=== PATIENT | male | born 1985 | race African-American/Black ===

== ENCOUNTER 2021-01-30 21:06 | Inpatient (IN) | payer OTHER ==
[~2021-01-30] VITALS: Ht 190.5 cm; Wt 104.2 kg
[2021-01-30] MEDS ORDERED: diphenhdrAMINE HCL 50 MG/1 ML VL IV ONE (22:15)
[2021-01-30] MEDS ORDERED: methylPREDNISolone SOD SUCC 125 MG/2 ML VL IV ONE (22:15)
[2021-01-30] MEDS ORDERED: fentaNYL CITRATE 100 MCG/2 ML VL IV ONE (22:15)
[2021-01-30] MEDS ORDERED: ONDANSETRON HCL 4 MG/2 ML VIAL IV ONE (22:15)
[2021-01-30] MEDS ORDERED: IOHEXOL 350 MG/ML 100ML IJ ONE (22:17)
[2021-01-30 22:37] LABS: Basophils # (auto) 0 10 ^3/uL (0-0.2); Basophils % (auto) 0.3 % (0.0-2.0); Eosinophils # (auto) 0 10 ^3/uL (0-0.8); Hematocrit 34.4 % (41.0-53.0); Hemoglobin 11.4 g/dL (13.5-17.5); Lymphocytes # (auto) 0.3 10 ^3/uL (0.4-5.4); Lymphocytes % (auto) 3.6 % (10.0-50.0); Mean Corpuscular Hemoglobin 28.5 pg (28.0-32.0); Mean Corpuscular Hgb Conc. 33.1 g/dL (32.0-36.0); Mean Corpuscular Volume 86.3 fL (80.0-100.0); Monocytes # (auto) 0.3 10 ^3/uL (0-1.3); Monocytes % (auto) 3.5 % (0.0-12.0); Neutrophils # (auto) 8.6 10 ^3/uL (1.6-8.6); Neutrophils % (auto) 92.6 % (37.0-80.0); Red Blood Cells 3.99 10^6/uL (4.5-5.90); White Blood Cell 9.2 10^3/uL (4.4-10.8)
[2021-01-30] MEDS ORDERED: FAMOTIDINE (10MG/ML) 2ML VL IV ONE (22:45)
[2021-01-30 22:53] LABS: INR 0.99 (0.9-1.15); Partial Thromboplastin Time 23.3 sec (23.6-33.0)
[2021-01-30 23:04] LABS: Alanine Aminotransferase 20 U/L (16-61); Albumin 3.3 g/dL (3.4-5.0); Anion Gap 7 (5-15); BUN/Creatinine Ratio 25.9; Blood Urea Nitrogen 15 mg/dL (7-18); Calcium 8.5 mg/dL (8.5-10.1); Carbon Dioxide 26 mmol/L (21-32); Chloride 106 mmol/L (98-107); GFR African American 205 mL/min; GFR Non-African American 169 mL/min; Glucose 79 mg/dL (74-106); Magnesium 2.2 mg/dL (1.6-2.6); Potassium 4.9 mmol/L (3.5-5.1); Sodium 139 mmol/L (136-145)
[2021-01-30 23:09] LABS: Alkaline Phosphatase 92 U/L (45-117); Aspartate Aminotransferase 9 U/L (15-37); Bilirubin, Total 0.3 mg/dL (0.2-1.0); Total Protein 6.7 g/dL (6.4-8.2)
[2021-01-31] MEDS ORDERED: diphenhdrAMINE HCL 50 MG/1 ML VL IV ONE (01:00)
[2021-01-31] MEDS ORDERED: HYDROmorphone HCL 2 MG/ML VL IV ONE (01:00)
[2021-01-31] MEDS ORDERED: PANTOPRAZOLE 40 MG/10 ML VIAL INJ IV ONE (02:00)
[2021-01-31] MEDS ORDERED: AZITHROMYCIN 500MG/ 250ML 250 ML IV ONE (02:00)
[2021-01-31] MEDS ORDERED: cefTRIAXone 1GM/50ML D5W 50 ML IV ONE (02:00)
[2021-01-31] MEDS ORDERED: HYDROcodone-ACET 5/325MG TAB PO PRN (02:45)
[2021-01-31] MEDS ORDERED: NITROGLYCERIN 0.4 MG SL TAB SL PRN (02:45)
[2021-01-31] MEDS ORDERED: MORPHINE SULFATE INJECTION 2 MG/ML SYRG IV PRN (02:45)
[2021-01-31] MEDS ORDERED: DOCUSATE SOD 100 MG CAP PO PRN (02:45)
[2021-01-31] MEDS ORDERED: ACETAMINOPHEN 325 MG TAB PO PRN (02:45)
[2021-01-31] MEDS: diphenhdrAMINE HCL 50 MG/1 ML VL IV PRN ×2 (03:39→20:18)
[2021-01-31] MEDS: SODIUM CHLOR 0.9% PF (SALINE LOCK) 10ML VIAL/SYR IV SCH ×3 (06:06→22:10)
[2021-01-31] MEDS: ONDANSETRON HCL 4 MG/2 ML VIAL IV PRN ×3 (06:24→15:44)
[2021-01-31] MEDS: HYDROmorphone HCL 2 MG/ML VL IV PRN ×4 (06:24→20:25)
[2021-01-31] MEDS ORDERED: ENOXAPARIN SOD 40 MG/0.4 ML SYRINGE SC SCH (10:00)
[2021-01-31] MEDS ORDERED: ZINC SULFATE 220mg CAP or TAB PO SCH (10:00)
[2021-01-31] MEDS ORDERED: MULTIPLE VITAMIN TAB PO SCH (10:00)
[2021-01-31] MEDS: methylPREDNISolone SOD SUCC 40 MG/ML VL IV SCH ×2 (10:59→22:14)
[2021-01-31] MEDS: FAMOTIDINE (10MG/ML) 2ML VL IV SCH ×2 (10:59→22:14)
[2021-01-31] MEDS: cefTRIAXone 1GM/50ML D5W 50 ML IV SCH (10:59)
[2021-01-31] MEDS: ASCORBIC ACID 500 MG TAB PO SCH ×2 (11:00→22:10)
[2021-01-31] MEDS: AZITHROMYCIN 500MG/ 250ML 250 ML IV SCH (11:28)
[2021-01-31] MEDS: SUCRALFATE 1 GM/10 ML ORAL SUSP PO SCH ×2 (18:30→22:10)
[2021-01-31 23:00] VITALS: BP 112/67
[2021-01-31 23:48] VITALS: BP 112/67
[2021-02-01] MEDS: HYDROmorphone HCL 2 MG/ML VL IV PRN ×6 (00:38→23:12)
[2021-02-01] MEDS ORDERED: FOLI1TAB6 PO (04:26)
[2021-02-01] MEDS ORDERED: CYA100I PO (04:26)
[2021-02-01] MEDS ORDERED: PANT40TA2 PO (04:26)
[2021-02-01] MEDS ORDERED: MONT10TA23 PO (04:26)
[2021-02-01] MEDS ORDERED: ASPI-543 PO (04:26)
[2021-02-01] MEDS ORDERED: ISO60SRT PO (04:26)
[2021-02-01] MEDS ORDERED: DOCU-94 PO (04:26)
[2021-02-01] MEDS ORDERED: ZOLP10TA PO (04:26)
[2021-02-01] MEDS ORDERED: DULO60CA PO (04:26)
[2021-02-01] MEDS ORDERED: TRAM-711 PO (04:26)
[2021-02-01] MEDS ORDERED: FLUT100M IN (04:26)
[2021-02-01] MEDS ORDERED: GABA300C10 PO (04:26)
[2021-02-01] MEDS ORDERED: TIOTCAP IN (04:26)
[2021-02-01] MEDS ORDERED: ONDA-144 PO (04:26)
[2021-02-01] MEDS ORDERED: ATOR10TA PO (04:26)
[2021-02-01] MEDS ORDERED: FERR-20 PO (04:26)
[2021-02-01] MEDS ORDERED: SOTA80TA20 PO (04:26)
[2021-02-01] MEDS ORDERED: DIP25C PO (04:26)
[2021-02-01] MEDS ORDERED: PERCOT PO (04:26)
[2021-02-01] MEDS ORDERED: DIGO0.12 PO (04:26)
[2021-02-01 05:00] VITALS: BP 104/58
[2021-02-01] MEDS: diphenhdrAMINE HCL 50 MG/1 ML VL IV PRN ×3 (05:04→23:12)
[2021-02-01] MEDS: SUCRALFATE 1 GM/10 ML ORAL SUSP PO SCH ×4 (06:19→21:52)
[2021-02-01] MEDS: SODIUM CHLOR 0.9% PF (SALINE LOCK) 10ML VIAL/SYR IV SCH ×3 (06:19→21:52)
[2021-02-01 07:24] LABS: Basophils # (auto) 0.1 10 ^3/uL (0-0.2); Basophils % (auto) 1.1 % (0.0-2.0); Eosinophils # (auto) 0 10 ^3/uL (0-0.8); Hematocrit 29.9 % (41.0-53.0); Hemoglobin 9.9 g/dL (13.5-17.5); Lymphocytes # (auto) 0.3 10 ^3/uL (0.4-5.4); Lymphocytes % (auto) 3.2 % (10.0-50.0); Mean Corpuscular Hemoglobin 28.5 pg (28.0-32.0); Mean Corpuscular Volume 86.5 fL (80.0-100.0); Monocytes # (auto) 0.5 10 ^3/uL (0-1.3); Monocytes % (auto) 5.3 % (0.0-12.0); Neutrophils # (auto) 8.6 10 ^3/uL (1.6-8.6); Neutrophils % (auto) 90.4 % (37.0-80.0); Nucleated Red Blood Cells % 0.2 %; Red Blood Cells 3.46 10^6/uL (4.5-5.90); Red Cell Distribution Width 17.5 % (11.8-14.3); White Blood Cell 9.5 10^3/uL (4.4-10.8)
[2021-02-01 07:34] LABS: Albumin 2.7 g/dL (3.4-5.0); BUN/Creatinine Ratio 38.3; Calcium 6.8 mg/dL (8.5-10.1)
[2021-02-01 07:36] LABS: Bilirubin, Total 0.3 mg/dL (0.2-1.0); Total Protein 5.4 g/dL (6.4-8.2)
[2021-02-01 09:00] VITALS: BP 109/69
[2021-02-01] MEDS: cefTRIAXone 1GM/50ML D5W 50 ML IV SCH (09:24)
[2021-02-01] MEDS: FAMOTIDINE (10MG/ML) 2ML VL IV SCH ×2 (09:25→21:51)
[2021-02-01] MEDS: methylPREDNISolone SOD SUCC 40 MG/ML VL IV SCH (09:25)
[2021-02-01] MEDS: AZITHROMYCIN 500MG/ 250ML 250 ML IV SCH (10:19)
[2021-02-01 13:00] VITALS: BP 107/70
[2021-02-01 16:47] VITALS: BP 110/73
[2021-02-01 22:00] VITALS: BP 112/56
[2021-02-02] MEDS: diphenhdrAMINE HCL 50 MG/1 ML VL IV PRN ×5 (03:27→23:24)
[2021-02-02] MEDS: HYDROmorphone HCL 2 MG/ML VL IV PRN ×5 (03:28→23:25)
[2021-02-02 05:00] VITALS: BP 97/54
[2021-02-02] MEDS: SODIUM CHLOR 0.9% PF (SALINE LOCK) 10ML VIAL/SYR IV SCH ×3 (05:24→22:24)
[2021-02-02] MEDS: SUCRALFATE 1 GM/10 ML ORAL SUSP PO SCH ×4 (06:11→22:24)
[2021-02-02 06:15] LABS: Basophils # (auto) 0 10 ^3/uL (0-0.2); Basophils % (auto) 0.5 % (0.0-2.0); Eosinophils # (auto) 0 10 ^3/uL (0-0.8); Eosinophils % (auto) 0.1 % (0.0-7.0); Hematocrit 32.7 % (41.0-53.0); Hemoglobin 10.8 g/dL (13.5-17.5); Lymphocytes # (auto) 0.2 10 ^3/uL (0.4-5.4); Lymphocytes % (auto) 2.9 % (10.0-50.0); Mean Corpuscular Hemoglobin 28.3 pg (28.0-32.0); Mean Corpuscular Hgb Conc. 33.1 g/dL (32.0-36.0); Mean Corpuscular Volume 85.7 fL (80.0-100.0); Monocytes # (auto) 0.6 10 ^3/uL (0-1.3); Monocytes % (auto) 8.6 % (0.0-12.0); Neutrophils # (auto) 5.9 10 ^3/uL (1.6-8.6); Neutrophils % (auto) 87.9 % (37.0-80.0); Nucleated Red Blood Cells % 0.1 %; Red Blood Cells 3.81 10^6/uL (4.5-5.90); Red Cell Distribution Width 16.9 % (11.8-14.3); White Blood Cell 6.7 10^3/uL (4.4-10.8)
[2021-02-02 09:00] VITALS: BP 128/60
[2021-02-02] MEDS: cefTRIAXone 1GM/50ML D5W 50 ML IV SCH (09:00)
[2021-02-02] MEDS: AZITHROMYCIN 500MG/ 250ML 250 ML IV SCH (10:00)
[2021-02-02] MEDS: FAMOTIDINE (10MG/ML) 2ML VL IV SCH ×2 (10:00→22:24)
[2021-02-02 13:00] VITALS: BP 106/61
[2021-02-02 16:37] VITALS: BP 100/47
[2021-02-02 22:00] VITALS: BP 125/75
[2021-02-03] MEDS: diphenhdrAMINE HCL 50 MG/1 ML VL IV PRN ×2 (03:25→09:30)
[2021-02-03] MEDS: HYDROmorphone HCL 2 MG/ML VL IV PRN ×2 (03:25→09:30)
[2021-02-03 05:00] VITALS: BP 96/58
[2021-02-03] MEDS: SODIUM CHLOR 0.9% PF (SALINE LOCK) 10ML VIAL/SYR IV SCH ×2 (06:39→14:00)
[2021-02-03] MEDS: SUCRALFATE 1 GM/10 ML ORAL SUSP PO SCH ×2 (06:41→11:30)
[2021-02-03 09:00] VITALS: BP 104/55
[2021-02-03] MEDS: cefTRIAXone 1GM/50ML D5W 50 ML IV SCH (09:00)
[2021-02-03] MEDS: FAMOTIDINE (10MG/ML) 2ML VL IV SCH (10:00)
[2021-02-03] MEDS: AZITHROMYCIN 500MG/ 250ML 250 ML IV SCH (10:00)
[2021-02-03 13:00] VITALS: BP 102/49
== END 2021-02-03 14:30 | disposition home or self-care (01) | DRG 253 ==
LOC: ER 21:06 → TELE 01-31 02:40 → TELE-CENTR 01-31 22:59
PROVIDERS: ADMIT Nurse Practitioner Family; ATTEND Family Medicine
PROC: 06HN33Z Insertion of Infusion Device into Left Femoral Vein, Percutaneous Approach (ICD-10-PCS; principal; 2021-01-31)
DX: K92.0 Hematemesis (principal); J96.00 Acute respiratory failure, unspecified whether with hypoxia or hypercapnia; J18.9 Pneumonia, unspecified organism; I27.20 Pulmonary hypertension, unspecified; I49.5 Sick sinus syndrome; Q87.40 Marfan syndrome, unspecified; I48.91 Unspecified atrial fibrillation; R07.89 Other chest pain; I25.10 Atherosclerotic heart disease of native coronary artery without angina pectoris; D64.9 Anemia, unspecified; I10 Essential (primary) hypertension; I25.2 Old myocardial infarction; J98.11 Atelectasis; R04.2 Hemoptysis; Z20.822 Contact with and (suspected) exposure to COVID-19; Z79.01 Long term (current) use of anticoagulants; Z82.49 Family history of ischemic heart disease and other diseases of the circulatory system; Z82.79 Family history of other congenital malformations, deformations and chromosomal abnormalities; Z83.3 Family history of diabetes mellitus; Z86.711 Personal history of pulmonary embolism; Z95.810 Presence of automatic (implantable) cardiac defibrillator; Z95.828 Presence of other vascular implants and grafts; Z88.8 Allergy status to other drugs, medicaments and biological substances; Z91.040 Latex allergy status; Z91.013 Allergy to seafood
CPT/HCPCS: 36415; 36556; 71045; 71275; 74175; 80053; 83605; 83735; 83880; 84484; 85025; 85379; 85610; 85730; 86850; 86900; 86901; 87040; 87081; 87426; 93005; 96365; 96366; 96368; 96372; 96375; 96376; 99291; C9113; G0378; J0696; J2405; J3490

== ENCOUNTER 2021-03-24 18:53 | Emergency (ER) | payer OTHER ==
[~2021-03-24] VITALS: Ht 190.5 cm; Wt 99.8 kg
[~2021-03-24 18:53] MED LIST: ASPI-543 PO; ATOR10TA PO; CYA100I PO; DIGO0.12 PO; DIP25C PO; DOCU-94 PO; DULO60CA PO; FERR-20 PO; FLUT100M IN; FOLI1TAB6 PO; GABA300C10 PO; ISO60SRT PO; MONT10TA23 PO; ONDA-144 PO; PANT40TA2 PO; PERCOT PO; SOTA80TA20 PO; TIOTCAP IN; TRAM-711 PO; ZOLP10TA PO
[2021-03-24 19:02] VITALS: BP 130/85
[2021-03-24] MEDS ORDERED: diphenhdrAMINE HCL 50 MG/1 ML VL IV ONE (19:30)
[2021-03-24] MEDS ORDERED: LORazepam 2MG/ML-1ML VIAL IV ONE (19:30)
[2021-03-24] MEDS ORDERED: FAMOTIDINE (10MG/ML) 2ML VL IV ONE (19:30)
[2021-03-24] MEDS ORDERED: methylPREDNISolone SOD SUCC 125 MG/2 ML VL IV ONE (19:30)
[2021-03-24] MEDS ORDERED: IOHEXOL 350 MG/ML 100ML IJ ONE ×2 (19:38→20:59)
== END 2021-03-24 20:53 | disposition left against medical advice (07) ==
LOC: EDBD 18:53 → ER 18:55
DX: R07.89 Other chest pain (principal); I25.10 Atherosclerotic heart disease of native coronary artery without angina pectoris; I25.2 Old myocardial infarction; I10 Essential (primary) hypertension; Z86.73 Personal history of transient ischemic attack (TIA), and cerebral infarction without residual deficits; Z95.0 Presence of cardiac pacemaker; Z79.82 Long term (current) use of aspirin; Z79.899 Other long term (current) drug therapy; Z91.040 Latex allergy status; Z91.018 Allergy to other foods; Z88.8 Allergy status to other drugs, medicaments and biological substances
CPT/HCPCS: 99283; Q9967